=== PATIENT | female | born 1995 | race Caucasian/White ===

== ENCOUNTER 2017-07-29 19:21 | Emergency (ER) | payer BC, OTHER ==
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
[2017-07-29 19:48] VITALS: BP 136/64
[2017-07-29] MEDS ORDERED: Cephalexin CAP* 500 MG PO ONE (20:35)
--- NOTE | 2017-07-29 20:40 | RAD ---
INDICATION: Left thumb injury COMPARISON: None TECHNIQUE: AP, lateral, and oblique views were obtained. FINDINGS: The bony structures, joint spaces, and soft tissues are normal for age. IMPRESSION: NEGATIVE EXAMINATION.
== END 2017-07-29 20:49 | disposition home or self-care (01) ==
LOC: UCCORT 19:21
DX: S61.012A Laceration without foreign body of left thumb without damage to nail, initial encounter (principal); W23.0XXA Caught, crushed, jammed, or pinched between moving objects, initial encounter; Y93.89 Activity, other specified; Y92.9 Unspecified place or not applicable
CPT/HCPCS: 12001; 99202; A9270-GY; G0463